=== PATIENT | male | born 1995 | race Caucasian/White ===

== ENCOUNTER 2018-08-31 13:04 | Emergency (ER) | payer SELFPAY ==
[~2018-08-31] VITALS: Ht 188 cm; Wt 91.2 kg
--- NOTE | 2018-08-31 14:00 | NUR ---
patient came to the ER c/o testicle pain, on room air, breathing evenly and unlabored. Kept comfortable, will continue to monitor accordingly.
[2018-08-31] MEDS ORDERED: IBUPROFEN 600 MG TABLET PO ONE ×2 (14:30→14:32)
[2018-08-31] MEDS ORDERED: HYDROCODONE/APAP 10/325MG 1 EA TABLET PO ONE (14:30)
[2018-08-31] MEDS ORDERED: CEFTRIAXONE 500 MG VIAL IM ONE (14:30)
[2018-08-31] MEDS ORDERED: CEFTRIAXONE 500 MG VIAL ONE (14:31)
[2018-08-31] MEDS ORDERED: HYDROCODONE/APAP 10/325MG 1 EA TABLET ONE (14:31)
[2018-08-31] MEDS ORDERED: LIDOCAINE /MPF 1% VIAL 5 ML VIAL ONE (14:34)
[2018-08-31 14:50] LABS: APPEARANCE,URINE Clear (CLEAR); BILIRUBIN,URINE SMALL (NEGATIVE); BLOOD, URINE Negative Ery/uL (NEGATIVE); COLOR,URINE Yellow (YELLOW); KETONES,URINE Negative (NEGATIVE); LEUKOCYTE ESTERASE ,URINE Negative (NEGATIVE); NITRITE, URINE Negative (NEGATIVE); PH,URINE 7.5 (5.0-8.0); PROTEIN,URINE Trace mg/dl (NEGATIVE); UGLUCOSE Negative (NEGATIVE); UROBILINOGEN,URINE 0.2 EU/dL (0.2)
[2018-08-31 14:52] LABS: BACTERIA,URINE Few /HPF (None Seen); RBC,URINE 0-2 /HPF (0-2); SQUAMOUS EPITHELIAL CELL,UR Rare /HPF (None Seen)
--- NOTE | 2018-08-31 14:54 | NUR ---
urine collected and sent to lab
[2018-08-31 15:13] VITALS: BP 120/65
--- NOTE | 2018-08-31 15:14 | NUR ---
Patient discharged to home in stable condition. Written and verbal after care instructions given. Patient verbalizes understanding of instruction.
== END 2018-08-31 15:14 | disposition home or self-care (01) ==
LOC: ER 13:04
DX: N45.1 Epididymitis (principal); N43.3 Hydrocele, unspecified; Z60.2 Problems related to living alone
CPT/HCPCS: 76870; 81001; 87086; 87491; 87591; 96372; 99284; J0696; J3490; 81000-TC